=== PATIENT | female | born 1965 | race American Indian/Alaskan Native ===

== ENCOUNTER 2017-06-01 08:59 | Day surgery (SDC) | payer BC ==
[~2017-06-01 08:59] MED LIST: ANCEF/STERILE WATER 2 GM/20 ML IV NR
[2017-06-01] MEDS ORDERED: NACL BACTERIOSTATIC INFILTRATI ONE (10:19)
[2017-06-01] MEDS ORDERED: NACL 0.9% 1000 ML 1,000 ML IV SCH (10:21)
[2017-06-01] MEDS ORDERED: XYLOCAINE 1% 20 mL ONE (10:47)
[2017-06-01] MEDS ORDERED: MARCAINE 0.25% INFILTRATI ONE ×2 (10:47→14:20)
--- NOTE | 2017-06-01 11:08 | Anesthesia Consultation ---
Anesthesia Consult and Med Hx Date of service: 06/01/17 - Airway Anesthetic Teeth Evaluation: Good ROM Head & Neck: Adequate Mental/Hyoid Distance: Adequate Mallampati Class: Class II Intubation Access Assessment: Probably Good - Pulmonary Exam CTA: Yes - Cardiac Exam Cardiac Exam: RRR - Pre-Operative Health Status ASA Pre-Surgery Classification: ASA2 Proposed Anesthetic Plan: General - Pulmonary Hx Smoking: No Hx Sleep Apnea: No (BRIGID PRE SCREEN HIGH RISK.) - Cardiovascular System Hx Hypertension: Yes ("WATCHING"- NOT STARTED ON MEDS YET) Hx Angina: No - Gastrointestinal Hx Gastroesophageal Reflux Disease: No - Endocrine Hx Renal Disease: No
[2017-06-01] MEDS ORDERED: ZOFRAN IV PRN (11:09)
--- NOTE | 2017-06-01 11:09 | Anesthesia Day of Surgery ---
Anesthesia Day of Surgery - Day of Surgery Patient Examined: Yes Patient H&P Reviewed: Yes Patient is NPO: Yes
[2017-06-01] MEDS ORDERED: VERSED IV NR (12:00)
[2017-06-01] MEDS ORDERED: PEPCID IV NR (12:00)
[2017-06-01] MEDS ORDERED: SUBLIMAZE ONE (12:26)
[2017-06-01] MEDS ORDERED: DIPRIVAN 10 MG/ML IV ONE (12:26)
[2017-06-01] MEDS ORDERED: XYLOCAINE MPF 2% ONE (12:26)
[2017-06-01] MEDS ORDERED: XYLOCAINE 1% 20 mL INFILTRATI ONE (14:20)
[2017-06-01] MEDS ORDERED: ADRENALIN IV ONE (14:26)
[2017-06-01] MEDS ORDERED: ZOFRAN ONE (14:46)
[2017-06-01] MEDS ORDERED: TORADOL ONE (14:49)
--- NOTE | 2017-06-01 15:03 | Short Stay Summary ---
Short Stay Documentation Date of service: 06/01/17 - History H&P: obtained from office - Allergies and Medications Current Medications: Allergies No Known Allergies Allergy (Verified 01/20/16 06:51) Home Medications Medication Instructions Recorded Confirmed Last Taken Type Ibuprofen [Motrin] 800 mg PO Q8HR PRN #30 tablet 01/20/16 06/01/17 05/25/17 Rx Gabapentin [Neurontin] 300 mg PO QID 05/19/17 06/01/17 05/25/17 History Naproxen Sodium [Aleve] 220 mg PO PRN PRN 05/19/17 06/01/17 05/25/17 History Active Medications Cefazolin Sodium (Ancef/Sterile Water 2 Gm/20 Ml) 2 gm IV PREOP NR Stop: 06/01/17 23:59 Famotidine (Pepcid) 20 mg IV PREOP NR Stop: 06/01/17 23:00 Last Admin: 06/01/17 11:30 Dose: 20 mg Hydromorphone HCl (Dilaudid) 0.5 mg IV Q10MIN PRN PRN Reason: Pain , Severe (7-10) Sodium Chloride (Nacl 0.9% 1000 Ml) 1,000 mls @ 75 mls/hr IV DIRECT RUFINO Stop: 06/01/17 23:59 Last Admin: 06/01/17 10:55 Dose: 75 mls/hr Midazolam HCl (Versed) 2 mg IV PREOP NR Stop: 06/01/17 23:59 Last Admin: 06/01/17 12:29 Dose: 2 mg Ondansetron HCl (Zofran) 4 mg IV ONCE PRN PRN Reason: Nausea And Vomiting - Brief post op/procedure progress note Date of procedure: 06/01/17 Pre-op diagnosis: persistent right knee pain medial meniscus tear Post-op diagnosis: other (persistent right knee pain, large complex tear posterior horn medial meniscus, articular cartilage wear of medial and patellofemoral compartments) Procedure: right knee arthroscopy partial medial meniscectomy, Anesthesia: GETA Findings: as above Surgeon: DANIELLE DAVIS Estimated blood loss: minimal Pathology: none Condition: stable - Hospital course Hospital course: no perioperative complications - Disposition Condition at discharge: Good Disposition: DC-01 TO HOME OR SELFCARE Short Stay Discharge Plan Follow up with: BASSAM WINCHESTER MD [Primary Care Provider] - 7 Days
[2017-06-01] MEDS: DILAUDID IV PRN ×2 (15:20→15:30)
[2017-06-01] MEDS ORDERED: PERCOCET 5/325 PO ONE (16:59)
[2017-06-01 20:22] VITALS: BP 138/70
--- NOTE | 2017-06-01 22:12 | Operative Report ---
PREOPERATIVE DIAGNOSES: Persistent right knee pain, medial meniscus tear. POSTOPERATIVE DIAGNOSES: Persistent right knee pain with mechanical symptoms, large complex tear located within the posterior horn of the medial meniscus, grade 3/4 articular cartilage loss almost the entire weightbearing portion of the medial femoral condyle and medial tibial plateau, grade 3/4 articular cartilage loss in the central aspect of the patella and trochlea. OPERATIVE PROCEDURE: Right knee arthroscopy, partial medial meniscectomy. SURGEON: Steven Guevara MD. SPINNER CONTINUOUS: None. ANESTHESIA: General. PREOPERATIVE ANTIBIOTICS: Ancef 2 grams IV within 1 hour of skin incision. DEEP VENOUS THROMBOSIS PROPHYLAXIS: Open toe thigh high compression stockings and SCD pumps to the nonoperative left lower extremity. OPERATIVE COMPLICATIONS: None. OPERATIVE HISTORY AND PHYSICAL: This is a 52-year-old female who has had persistent progressive worsening right knee pain with mechanical symptoms status post injury playing with her kids in 04/2016. The knee is markedly limiting her day-to-day activities and has failed to improve despite extensive nonoperative treatment. MRI scan was performed, which was positive for joint effusion, a tear in the posterior horn of the medial meniscus, moderate particulate cartilage wear in the medial and patellofemoral compartments. The patient's MRI findings and diagnosis were discussed at length to make sure the patient understood the diagnosis. All questions were answered. We then discussed treatment alternatives of surgical and nonsurgical including risks and benefits of both. After a long lengthy discussion, the patient opted to proceed with operative intervention. This will entail a right knee arthroscopy, partial medial meniscectomy and surgery as indicated. The risks of which were discussed to include, but not exclusive of infection, blood loss, nerve damage, loss of range of motion, persistent pain. Again, the patient understood. All of her questions answered and she wished to proceed with operative intervention. OPERATIVE PROCEDURE: The patient was seen in the preoperative holding area at which point informed consent was reviewed and appropriate right lower extremity was identified and then marked. The patient was then brought back to the operating room and placed supine on a standard operative table, at which point, general anesthesia was administered and an LMA tube was inserted. After confirmation of adequate general anesthesia and checking appropriate placement of the LMA tube, we then made sure that all bony prominences were well padded and that there were no wrinkles in the compression stockings on the left lower extremity, and an SCD pump was applied to the left lower extremity. The head was secured in a neutral position. The arms were secured in a neutral position as well. The right lower extremity was then examined under anesthesia. The patient was seen to have full range of motion 0-130 degrees of flexion. There was no evidence of instability with a negative Hardeep, negative anterior drawer, negative posterior drawer. No varus or valgus instability at 0 as well as 30 degrees of flexion. No recurvatum or excessive internal rotation. Following examination under anesthesia, the right lower extremity was then prepped and draped in the usual sterile fashion. After prepping and draping, a time-out was called and the appropriate right lower extremity was identified, which again had been marked in preop holding area. I began the procedure by first infiltrating the knee with 30 mL of 0.25% Marcaine without epinephrine and 30 mL of 1% lidocaine without epinephrine, which the patient tolerated well and there were no complications. Following this, right lower extremity was then prepped and draped in the usual sterile fashion and we began the procedure by first making a standard anterolateral portal with #15 blade. Once the portal was established, a cannula with a blunt trocar was inserted into the intra-articular aspect of the knee joint. This went without difficulty or damage to articular cartilage. Once in place, the arthroscopic camera was immediately placed in the medial compartment establishing anteromedial portal by first inserting an 18-inch spinal needle. Under direct arthroscopic visualization, it was confirmed to be in appropriate position. A #15 blade was then used to establish anteromedial portal. Once the portal was established, a blunt trocar was inserted to widen the portal site followed by the arthroscopic probe. We began a diagnostic arthroscopy in the medial compartment. The patient had a large complex tear located in the posterior horn of the medial meniscus. There was grade 3/4 articular cartilage loss of the weightbearing portion of the medial femoral condyle and medial tibial plateau. Inspection of the notch showed the ACL and PCL to be intact and stable when probed. Inspection of lateral compartment was carried out by placing the knee in [id number] position. Once in that position, we saw there were no tears in the anterior or posterior horn of the lateral meniscus. The popliteus seen to be intact and stable when probed. There was normal articular cartilage of the lateral femoral condyle and lateral tibial plateau. Inspection of the medial and lateral gutters showed to be a small ridge of osteophytes present. There were no loose bodies present. Inspection of patellofemoral joint showed to be grade 3/4 articular cartilage loss in the central aspect of the patella and trochlea. Inspection of suprapatellar pouch showed to be no loose bodies present. We turned our attention back to the medial compartment. We performed a partial medial meniscectomy in standard fashion using a series of basket punches and 4.0 meniscal shaver down to a nice, smooth, stable healthy remaining border all in all removing the white-white, white-red as well as a portion of the red-red zone. Following this, arthroscopic pump was turned off making sure there was good hemostasis. Once this was confirmed, the arthroscopic pump was then turned back on. The arthroscopic camera was then placed in the posterior aspect of the knee adjacent to the cruciate ligaments and femoral condyle. Once in the posterior aspect of the knee, we saw there were no root tears present. There were no loose bodies present. Arthroscopic camera was then removed from the posterior aspect of the knee. Arthroscopic fluid was then suctioned from the knee using arthroscopic cannula. Following this, all arthroscopic instrumentation was removed. The 2 portal sites were closed with 3-0 nylon in simple fashion. Adaptic, 4 x 4s, ABD, sterile cast padding and Corey wrap were applied. The patient was then awakened from general anesthesia without complications, taken to the recovery room in stable condition. Standard postop orders were written. JOB# [id number] VS/VIVIAN
== END 2017-06-01 18:30 | disposition home or self-care (01) ==
LOC: OR 08:59
PROVIDERS: ATTEND Orthopaedic Surgery
DX: S83.231A Complex tear of medial meniscus, current injury, right knee, initial encounter (principal); I10 Essential (primary) hypertension; E11.9 Type 2 diabetes mellitus without complications; E66.9 Obesity, unspecified; E78.5 Hyperlipidemia, unspecified; G43.909 Migraine, unspecified, not intractable, without status migrainosus; M19.90 Unspecified osteoarthritis, unspecified site; X58.XXXA Exposure to other specified factors, initial encounter; Y93.89 Activity, other specified; Y92.89 Other specified places as the place of occurrence of the external cause; Y99.8 Other external cause status; Z79.899 Other long term (current) drug therapy; Z68.37 Body mass index [BMI] 37.0-37.9, adult
CPT/HCPCS: 29881; 82962; 97116; 97161; 97530; J0171; J0690; J1170; J1885; J2250; J2405; J2704; J3010; J7030